=== PATIENT | female | born 1985 | race Caucasian/White ===

== ENCOUNTER 2017-08-18 01:21 | Emergency (ER) | payer OTHER ==
[2017-08-18] MEDS ORDERED: IPRATROPIUM/ALBUTEROL (0.5MG/3MG) NEB INH ONE (01:31)
[2017-08-18] MEDS ORDERED: PREDNISONE 20 MG TAB PO ONE (01:31)
[2017-08-18] MEDS ORDERED: AZITHROMYCIN 500 MG TABLET PO ONE (01:31)
--- NOTE | 2017-08-18 01:38 | Emergency Department Record ---
History of Present Illness - General Chief Complaint: Cough Stated Complaint: COUGH Time Seen by Provider: 08/18/17 01:31 Source: Patient Mode of Arrival: Ambulatory Limitations: No limitations - History of Present Illness Initial Comments: 31 yo female presents with a cough for 10 days. The cough is productive at times. She has had subjective fevers. No sore throat. She reports she is a smoker. She has some neck pain on the left from hard forced coughing. NO vomiting or diarrhea. No rash. She has been wheezing at times. She has used inhalers in the past but she does not have one currently. The sputum has been gradually increasing from yellow to green to brown. She has seen a few streak of blood with the hard coughing. She cough so hard her neck hurts on the left. No calf pain. No HRT. No cancer history. MD Complaint: Cough, Nasal congestion -: Days(s) (10) Quality: Aching Consistency: Constant Improves With: Nothing Worsens With: Nothing Associated Symptoms: Cough Treatments Prior to Arrival: None - Related Data Home Medications Medication Instructions Recorded Confirmed Last Taken Omeprazole [Prilosec] 20 mg PO DAILY 08/18/17 08/18/17 Unknown Previous Rx's Medication Instructions Recorded Albuterol Sulfate [Proair Hfa] 1 - 2 puff IH .EVERY 4-6 HOURS PRN 08/18/17 #1 inhaler Azithromycin [Zithromax] 250 mg PO DAILY #4 tab 08/18/17 Azithromycin [Zithromax] 250 mg PO DAILY #4 tablet 08/18/17 Cyclobenzaprine HCl [Flexeril] 10 mg PO TID #20 tablet 08/18/17 Prednisone [Prednisone 20Mg] 20 mg PO BID #10 tab 08/18/17 Allergies Allergy/AdvReac Type Severity Reaction Status Date / Time No Known Drug Allergies Allergy Verified 08/18/17 02:13 Review of Systems Constitutional: Reports: Fever, Malaise Eyes: Denies: Eye discharge, Eye pain, Photophobia ENT: Reports: Congestion. Denies: Throat pain Respiratory: Reports: Cough, Dyspnea, Hemoptysis (The sputum is yellow to green to brown. She has seen a few small streaks of blood), Wheezes Cardiovascular: Denies: Chest pain, Syncope Endocrine: Denies: Fatigue, Polydipsia, Polyuria Gastrointestinal: Denies: Abdominal pain, Diarrhea, Nausea, Vomiting Genitourinary: Denies: Dysuria Musculoskeletal: Denies: Arthralgia, Back pain, Neck pain Skin: Denies: Bruising, Change in color, Pruritus Neurological: Denies: Confusion, Headache, Numbness, Weakness Psychiatric: Denies: Anxiety Hematological/Lymphatic: Denies: Blood Clots, Easy bleeding, Easy bruising, Swollen glands Past Medical History - SOCIAL HISTORY Smoking Status: Current every day smoker - RESPIRATORY Hx Respiratory Disorders: No - CARDIOVASCULAR Hx Cardio Disorders: No - NEURO Hx Neuro Disorders: No - GI Hx GI Disorders: Yes Comment:: volodymyr - Hx Genitourinary Disorders: No - ENDOCRINE Hx Endocrine Disorders: No Hx Diabetes: No Hx Thyroid Disease: No Comment:: Eye Doctor suggested being checked for thyroid issues - MUSCULOSKELETAL Hx Musculoskeletal Disorders: No - PSYCH Hx Psych Problems: No - HEMATOLOGY/ONCOLOGY Hx Hematology/Oncology Disorders: No Family Medical History Hx Heart Disease: Father, Grandparents Physical Exam - General General Appearance: Alert, Oriented x3, Cooperative, No acute distress Limitations: No limitations - Head Head exam: Atraumatic, Normocephalic, Normal inspection - Eye Eye exam: Normal appearance. negative: Conjunctival injection, Periorbital swelling, Scleral icterus - ENT ENT exam: Normal exam, Mucous membranes moist Ear exam: Normal external inspection Nasal Exam: Normal inspection Mouth exam: Normal external inspection Throat exam: Normal inspection. negative: Tonsillar erythema, Tonsillomegaly, Tonsillar exudate, R peritonsillar mass, L peritonsillar mass - Neck Neck exam: Normal inspection, Tenderness (atender left lateral neck) - Respiratory Respiratory exam: Decreased breath sounds, Rhonchi, Wheezes. negative: Normal lung sounds bilaterally, Accessory muscle use, Chest wall tenderness, Respiratory distress - Cardiovascular Cardiovascular Exam: Regular rate, Normal rhythm, Normal heart sounds Peripheral Pulses: 2+: Radial (R), Radial (L) - GI/Abdominal GI/Abdominal exam: Soft. negative: Tenderness - Rectal Rectal exam: Deferred - exam: Deferred - Extremities Extremities exam: Normal inspection, Full ROM, Normal capillary refill. negative: Pedal edema, Tenderness - Back Back exam: Reports: Normal inspection, Full ROM. Denies: CVA tenderness (R), CVA tenderness (L), Muscle spasm, Rash noted, Tenderness - Neurological Neurological exam: Alert, Normal gait, Oriented X3 - Psychiatric Psychiatric exam: Normal affect, Normal mood - Skin Skin exam: Dry, Intact, Normal color, Warm Course Vital Signs 08/18/17 01:27 Temperature 97.4 F L Pulse Rate [ 74 Pulse Ox Probe] Respiratory 20 Rate Blood Pressure 134/90 [Left Arm] Pulse Ox 97 - Reevaluation(s) Reevaluation #1: The patient has a frequent harsh cough but no acute distress. No conversational dyspnea No tachycardia or hypoxia. 08/18/17 01:38 08/18/17 02:07 The CXR was reviewed No acute infiltrate Disposition Disposition: Discharge Clinical Impression: Bronchitis Disposition: Home, Self-Care Condition: (1) Good Instructions: Acute Bronchitis (ED) Additional Instructions: Return to the ED in the next 1-2 days if not improving and sooner if worse Call your doctor for close follow up Take the steroids and the antibiotics as directed Prescriptions: Albuterol Sulfate [Proair Hfa] 1 - 2 puff IH .EVERY 4-6 HOURS PRN #1 inhaler PRN Reason: Difficulty In Breathing Azithromycin [Zithromax] 250 mg PO DAILY #4 tablet Azithromycin [Zithromax] 250 mg PO DAILY #4 tab Cyclobenzaprine HCl [Flexeril] 10 mg PO TID #20 tablet Prednisone [Prednisone 20Mg] 20 mg PO BID #10 tab Forms: Patient Portal Access Time of Disposition: 02:11 Quality - Quality Measures Quality Measures: N/A - Blood Pressure Screening Does Patient Have Any of the Following: No Blood Pressure Classification: Hypertensive Reading Systolic Measurement: 131 Diastolic Measurement: 90 Screening for High Blood Pressure: < Pre-Hypertensive BP, F/U Documented > [ G8950] Pre-Hypertensive Follow-up Interventions: Referral to alternative/primary care provider.
[2017-08-18] MEDS ORDERED: CYCLOBENZAPRINE 10MG TABLET PO ONE (02:09)
--- NOTE | 2017-08-18 08:56 | RADIOLOGY REPORT ---
EXAM: CHEST, TWO VIEWS HISTORY: COUGH FOR ONE AND A HALF WEEKS. TECHNIQUE: PA and lateral views of the chest were obtained. Comparison: Two view chest 06/20/14. FINDINGS: The heart size is normal. The lungs appear expanded with no definite acute infiltrate seen. No pleural effusion or pneumothorax evident. IMPRESSION: THE CHEST APPEARS NEGATIVE WITH NO DEFINITE ACUTE INFILTRATE SEEN. JOB NUMBER: [id number] MTDD
== END 2017-08-18 02:28 | disposition home or self-care (01) ==
LOC: ER 01:21
DX: J20.9 Acute bronchitis, unspecified (principal); M54.2 Cervicalgia; F17.210 Nicotine dependence, cigarettes, uncomplicated
CPT/HCPCS: 99283; 99284; 71020; 94640; J7512

== ENCOUNTER 2018-09-09 15:55 | Emergency (ER) | payer MEDICAID, OTHER ==
[2018-09-09 17:53] LABS: STREP A SCREEN NEGATIVE (NEGATIVE)
[2018-09-09 18:07] LABS: INFLUENZA A POSITIVE (NEGATIVE); INFLUENZA B NEGATIVE (NEGATIVE)
--- NOTE | 2018-09-09 18:27 | Emergency Department Record ---
History of Present Illness - General Chief Complaint: Headache Migraine Stated Complaint: body aches,headache Time Seen by Provider: 09/09/18 18:09 Source: Patient Mode of Arrival: Ambulatory Limitations: No limitations - History of Present Illness Initial Comments: 32 yo female presents to ED for evaluation of nausea, vomiting, and body aches for the past 2 days. Patient reports taking flexeril and Motrin for her symptoms without improvement. Patient denies abdominal pain of urinary symptoms , denies receiving an influenza vaccine this year. Patient denies health problems other than back pain resulting in a slip and fall. MD Complaint: Headache Onset/Timin -: Days(s) Onset Description: Gradual Severity: Moderate Severity scale (1-10): 2 Quality: Throbbing Consistency: Constant Improves With: Medication Worsens With: None Associated Symptoms: Fever Other Symptoms: Cough Treatments Prior to Arrival: Ibuprofen Treatment Prior to Arrival Comment:: flexeril - Related Data Previous Rx's Medication Instructions Recorded Oseltamivir Phosphate [Tamiflu] 75 mg PO BID #10 capsule 09/09/18 Allergies Allergy/AdvReac Type Severity Reaction Status Date / Time No Known Drug Allergies Allergy Verified 09/09/18 16:58 Travel Screening - Travel/Exposure Within Last 30 Days Have you traveled within the last 30 days?: No - Travel/Exposure Within Last Year Have you traveled outside the [place] in the last year?: No - Additonal Travel Details Have you been exposed to anyone with a communicable illness?: No - Travel Symptoms Symptom Screening: None Review of Systems Constitutional: Reports: Chills, Fever, Malaise, Weakness. Denies: Night sweats Eyes: Denies: Eye discharge, Eye pain ENT: Reports: Congestion Respiratory: Reports: Cough. Denies: Dyspnea Cardiovascular: Denies: Chest pain, Dyspnea on exertion Endocrine: Reports: Fatigue. Denies: Heat or cold intolerance Gastrointestinal: Reports: Nausea, Vomiting. Denies: Abdominal pain Genitourinary: Denies: Incontinence, Retention Musculoskeletal: Reports: Myalgia. Denies: Arthralgia, Back pain Skin: Denies: Bruising, Change in color Neurological: Reports: Headache. Denies: Abnormal gait, Confusion Psychiatric: Denies: Anxiety Hematological/Lymphatic: Denies: Anemia, Blood Clots Past Medical History - SOCIAL HISTORY Smoking Status: Current every day smoker Alcohol Use: None Drug Use: None - RESPIRATORY Hx Respiratory Disorders: No - CARDIOVASCULAR Hx Cardio Disorders: No - NEURO Hx Neuro Disorders: No - GI Hx GI Disorders: Yes Comment:: volodymyr - Hx Genitourinary Disorders: No - ENDOCRINE Hx Endocrine Disorders: No Hx Diabetes: No Hx Thyroid Disease: No Comment:: Eye Doctor suggested being checked for thyroid issues - MUSCULOSKELETAL Hx Musculoskeletal Disorders: No - PSYCH Hx Psych Problems: No - HEMATOLOGY/ONCOLOGY Hx Hematology/Oncology Disorders: No Family Medical History Any Significant Family History?: Yes Hx Heart Disease: Father, Grandparents Physical Exam - General General Appearance: Alert, Oriented x3, Cooperative, Moderate distress Limitations: No limitations - Head Head exam: Atraumatic, Normocephalic, Normal inspection Head exam detail: negative: Abrasion, Contusion, Bates's sign, General tenderness, Hematoma, Laceration - Eye Eye exam: Normal appearance. negative: Conjunctival injection, Periorbital swelling, Periorbital tenderness, Scleral icterus - ENT Ear exam: negative: Auricular hematoma, Auricular trauma Nasal Exam: negative: Active bleeding, Discharge, Dried blood, Foreign body Mouth exam: negative: Drooling, Laceration, Muffled voice, Tongue elevation - Neck Neck exam: Normal inspection. negative: Meningismus, Tenderness - Respiratory Respiratory exam: Normal lung sounds bilaterally. negative: Respiratory distress, Rhonchi, Stridor, Wheezes - Cardiovascular Cardiovascular Exam: Regular rate, Normal rhythm, Normal heart sounds - GI/Abdominal GI/Abdominal exam: Soft. negative: Rebound, Rigid, Tenderness - Rectal Rectal exam: Deferred - exam: Deferred - Extremities Extremities exam: Normal inspection. negative: Pedal edema, Tenderness - Back Back exam: Denies: CVA tenderness (R), CVA tenderness (L) - Neurological Neurological exam: Alert, Normal gait, Oriented X3 - Psychiatric Psychiatric exam: Normal affect, Normal mood - Skin Skin exam: Normal color. negative: Abrasion Type of lesion: negative: abrasion Course Vital Signs 09/09/18 16:50 Temperature 100.4 F H Pulse Rate 103 H Respiratory 20 Rate Blood Pressure 112/50 Pulse Ox 98 - Reevaluation(s) Reevaluation #1: 09/09/18 18:25 Influenza A positive Strep: Negative Reevaluation #2: 09/09/18 19:34 Patient was reassessed, reports that she is feeling much improved. Patient appears stable for discharge at this time. Medical Decision Making - Lab Data Lab Results 09/09/18 Range/Units 17:40 Influenza Type A Ag Positive H (NEGATIVE) Influenza Type B Ag Negative (NEGATIVE) Group A Strep Screen Negative (NEGATIVE) Disposition Disposition: Discharge Clinical Impression: Influenza A Disposition: Home, Self-Care Condition: (2) Stable Instructions: Influenza (ED) Additional Instructions: Return to ED if your symptoms worsen or if you have any concerns. Tylenol, Ibuprofen, and Tamiflu as directed. Follow-up with your family doctor in 3-5 days as directed. Prescriptions: Oseltamivir Phosphate [Tamiflu] 75 mg PO BID #10 capsule Forms: Patient Portal Access Time of Disposition: 19:35 Quality - Quality Measures Quality Measures: N/A - Blood Pressure Screening Does Patient Have Any of the Following: No Blood Pressure Classification: Normal BP Reading Systolic Measurement: 112 Diastolic Measurement: 50 Screening for High Blood Pressure: < Normal BP, F/U Not Required > [G8783]
[2018-09-09] MEDS: METOCLOPRAMIDE HCL 10 MG/2 ML VIAL IVP ONE (18:45)
[2018-09-09] MEDS: DIPHENHYDRAMINE HCL 50 MG/ML VIAL IVP ONE (18:45)
[2018-09-09] MEDS: KETOROLAC 30 MG/ML VIAL IVP ONE (18:45)
[2018-09-09] MEDS: 0.9 % SODIUM CHLORIDE 1000ML 1,000 ML IV SCH (18:47)
[2018-09-09] MEDS: OSTELTAMIVIR 75 MG CAP PO ONE (20:02)
== END 2018-09-09 20:08 | disposition home or self-care (01) ==
LOC: ER 15:55
DX: J10.1 Influenza due to other identified influenza virus with other respiratory manifestations (principal); R11.2 Nausea with vomiting, unspecified; F17.210 Nicotine dependence, cigarettes, uncomplicated
CPT/HCPCS: 99284 ×2; 96374; 96375; 87880; 87400; J1885; J1200; J2765; J7030